=== PATIENT | female | born 1975 | race Caucasian/White ===

== ENCOUNTER → 2024-12-23 19:48 | Outpatient (REF) | payer BC, SELFPAY | LOC: WDC 19:48 | PROVIDERS: ATTENDING PHYSICIAN Radiology Radiation Oncology; FAMILY PHYSICIAN Family Medicine | DX: Z12.31 Encounter for screening mammogram for malignant neoplasm of breast (principal); Z85.3 Personal history of malignant neoplasm of breast; D05.11 Intraductal carcinoma in situ of right breast | CPT/HCPCS: 77063; 77067 ==

== ENCOUNTER → 2025-01-20 11:43 | Outpatient (REF) | payer BC, SELFPAY ==
[2025-01-21 14:34] LABS: HIV Combo Negative (Negative)
== END ==
LOC: REG 11:43
PROVIDERS: ATTENDING PHYSICIAN Obstetrics & Gynecology Gynecology
DX: Z20.2 Contact with and (suspected) exposure to infections with a predominantly sexual mode of transmission (principal)
CPT/HCPCS: 36415; 87389

== ENCOUNTER → 2025-04-29 07:50 | Outpatient (REF) | payer BC, SELFPAY | LOC: WDC 07:50 | PROVIDERS: ATTENDING PHYSICIAN Radiology Radiation Oncology; FAMILY PHYSICIAN Family Medicine | DX: R92.333 Mammographic heterogeneous density, bilateral breasts (principal) | CPT/HCPCS: 76641 ==